=== PATIENT | male | born 1960 | race Caucasian/White ===

== ENCOUNTER 2019-04-06 21:02 | Emergency (ER) | payer OTHER ==
[~2019-04-06] VITALS: Ht 185.4 cm; Wt 109.0 kg
[~2019-04-06 21:02] MED LIST: NO HOME MEDS
[2019-04-06] MEDS ORDERED: normal saline 1000ML IV soln IVB ONE (21:10)
[2019-04-06] MEDS ORDERED: ipratropium/albuterol 3ml nebule NEB ONE (21:10)
[2019-04-06] MEDS ORDERED: methylPREDNISolone sod succ 125mg/2ml vial IV ONE (21:10)
[2019-04-06 21:20] LABS: BASOPHILS % (AUTO) 0.3 % (0-1); EOSINOPHILS % (AUTO) 0.1 % (0-6); HEMATOCRIT 42.3 % (42.0-52.0); HEMOGLOBIN 14.5 g/dl (14.0-17.9); LYMPHOCYTES # (AUTO) 0.9 X10'3 (1.1-4.8); LYMPHOCYTES % (AUTO) 8.1 % (21-51); MEAN CORPUSCULAR HEMOGLOBIN 29.8 PG (27.0-31.0); MEAN CORPUSCULAR HGB CONC 34.3 g/dL (33.0-36.5); MEAN CORPUSCULAR VOLUME 87.1 FL (78-98); MEAN PLATELET VOLUME 10.2 FL (7.4-10.4); MONOCYTES # (AUTO) 0.9 X10'3 (0-0.9); NEUTROPHILS # (AUTO) 9.6 X10'3 (1.8-7.7); NEUTROPHILS % (AUTO) 83.5 % (42-75); PLATELET COUNT 150 X10'3 (140-440); RED BLOOD COUNT 4.86 X10'6 (4.70-6.10); RED CELL DISTRIBUTION WIDTH 13.7 % (11.5-14.5); WHITE BLOOD COUNT 11.5 X10'3 (4.5-11.0)
[2019-04-06 21:31] LABS: ALANINE AMINOTRANSFERASE 30 U/L (12-78); ALBUMIN 3.7 G/DL (3.4-5.0); ALBUMIN/GLOBULIN RATIO 1.1 (1.1-1.5); ALKALINE PHOSPHATASE 42 IU/L (46-116); ANION GAP 12 (8-16); ASPARTATE AMINO TRANSFERASE 15 U/L (10-37); BILIRUBIN,TOTAL 0.8 MG/DL (0.1-1.0); BLOOD UREA NITROGEN 13 MG/DL (7-18); BUN/CREATININE RATIO 12.9 (5.4-32.0); CALCIUM 8.5 MG/DL (8.5-10.1); CHLORIDE 100 MMOL/L (99-107); CREATININE 1.01 MG/DL (0.60-1.10); GLUCOSE 114 MG/DL (70-104); POTASSIUM 3.7 MMOL/L (3.5-5.1); SODIUM 135 MMOL/L (135-145); TOTAL CARBON DIOXIDE 23.5 MMOL/L (24-32); TOTAL PROTEIN 7.1 G/DL (6.4-8.2); eGFR 76 ML/MIN
[2019-04-06] MEDS ORDERED: PRED20TA PO (21:57)
[2019-04-06] MEDS ORDERED: ALBU6.7H9 INH (21:57)
[2019-04-06 22:17] VITALS: BP 134/71
== END 2019-04-06 22:19 | disposition home or self-care (01) ==
LOC: ER 21:03
DX: J45.909 Unspecified asthma, uncomplicated (principal); F17.200 Nicotine dependence, unspecified, uncomplicated; Z79.899 Other long term (current) drug therapy
CPT/HCPCS: 36415; 71045; 80053; 84484; 85025; 93005; 94640; 94760; 96374; 99284; J2930; J7030; 99283

== ENCOUNTER 2020-05-12 15:30 | Emergency (ER) | payer MEDICAID ==
[~2020-05-12] VITALS: Ht 185.4 cm; Wt 114.2 kg
[~2020-05-12 15:30] MED LIST changes: +ALBU6.7H9 INH
[2020-05-12] MEDS ORDERED: nitroGLYCERIN 0.4mg SUBLingual tab SL PRN (15:50)
--- NOTE | 2020-05-12 16:08 | NUR ---
WITH DR MARTINEZ AT PT GIVEN NTG X 2 DISOLVED IN H20 FOLLOWED BY DIET PEPSI. UNABLE TO PASS
[2020-05-12] MEDS ORDERED: normal saline 1000ml 1,000 ML IV ONE (16:15)
--- NOTE | 2020-05-12 16:32 | NUR ---
PT IN NO APPARENT DISTRESS, IV STARTED WITH NS BOLUS STARTED
[2020-05-12 18:06] VITALS: BP 143/95
[2020-05-12] MEDS ORDERED: fentaNYL/PF 50MCG/1 ML 2ML syringe ONE (18:27)
[2020-05-12] MEDS ORDERED: LIDOcaine Viscous 15ml cup ONE (18:27)
[2020-05-12] MEDS ORDERED: MIDAZolam 5mg/5ml vial ONE (18:27)
--- NOTE | 2020-05-12 19:55 | NUR ---
pt still in gi lab
[2020-05-12 19:56] VITALS: BP 132/80
[2020-05-12 20:06] VITALS: BP 125/81
[2020-05-12 20:16] VITALS: BP 123/83
[2020-05-12 20:23] VITALS: BP 133/88
--- NOTE | 2020-05-12 20:32 | NUR ---
PT CAME BACK FROM GI, 5MG VERSED AND 150MG OF FENTNAL GIVEN IN GI
--- NOTE | 2020-05-12 20:34 | NUR ---
PT [id number] WILL RECHECK HIS VS AND HAVE ER MD ASSESS PT
[2020-05-12 20:35] VITALS: BP 118/79
== END 2020-05-12 21:06 | disposition home or self-care (01) ==
LOC: ER 15:30
DX: T18.128A Food in esophagus causing other injury, initial encounter (principal); J45.909 Unspecified asthma, uncomplicated; Z79.899 Other long term (current) drug therapy; X58.XXXA Exposure to other specified factors, initial encounter; Y93.89 Activity, other specified; Y92.89 Other specified places as the place of occurrence of the external cause; Y99.8 Other external cause status
CPT/HCPCS: 43247; 43248; 96360; 99285; J2250; J3010; J7030; J7040; 99152; 99284; A4620